=== PATIENT | male | born 1960 | race Caucasian/White ===

== ENCOUNTER 2021-04-11 11:36 | Emergency (ER) | payer OTHER ==
[~2021-04-11] VITALS: Ht 190.5 cm; Wt 90.7 kg
[2021-04-11] MEDS ORDERED: ZOLOFT100 MG PO (12:01)
[2021-04-11] MEDS ORDERED: HYDROXYZIN10 MG/5 ML PO (12:01)
[2021-04-11] MEDS ORDERED: GABAPENTIN800 M1 PO (12:01)
[2021-04-11] MEDS ORDERED: ADULT LOW DOSE81 M1 PO (12:02)
[2021-04-11] MEDS ORDERED: INSULIN SYRING1 EA29 (12:02)
[2021-04-11] MEDS ORDERED: THIAMINE HCL25 GM (12:02)
[2021-04-11] MEDS ORDERED: FOLIC ACID0.8 M1 (12:02)
[2021-04-11] MEDS ORDERED: LANTUS SOL100 UNIT/1 (12:03)
== END 2021-04-11 15:54 | disposition home or self-care (01) ==
LOC: ER 11:36
DX: S22.42XA Multiple fractures of ribs, left side, initial encounter for closed fracture (principal); W10.9XXA Fall (on) (from) unspecified stairs and steps, initial encounter; Y92.019 Unspecified place in single-family (private) house as the place of occurrence of the external cause; F10.20 Alcohol dependence, uncomplicated; E11.9 Type 2 diabetes mellitus without complications; Z91.013 Allergy to seafood

== ENCOUNTER → 2021-07-25 | Emergency (ER) | payer OTHER ==
[~2021-07-25] VITALS: Ht 188 cm; Wt 90.7 kg
[~2021-07-25] MED LIST: ADULT LOW DOSE81 M1 PO; CREON DR 36,001 EACH; FOLIC ACID0.8 M1; GABAPENTIN800 M1 PO; HYDROXYZIN10 MG/5 ML PO; INSULIN SYRING1 EA29; LANTUS SOL100 UNIT/1; THIAMINE HCL25 GM; ZOLOFT100 MG PO
== END ==
LOC: ER 09:50
DX: E11.00 Type 2 diabetes mellitus with hyperosmolarity without nonketotic hyperglycemic-hyperosmolar coma (NKHHC) (principal); R07.9 Chest pain, unspecified; F10.239 Alcohol dependence with withdrawal, unspecified; F10.229 Alcohol dependence with intoxication, unspecified; E11.65 Type 2 diabetes mellitus with hyperglycemia; Z79.4 Long term (current) use of insulin; Z91.013 Allergy to seafood; K29.70 Gastritis, unspecified, without bleeding; Z20.822 Contact with and (suspected) exposure to COVID-19

== ENCOUNTER 2021-10-24 02:36 | Inpatient (IN) | payer OTHER ==
[~2021-10-24] VITALS: Ht 182.9 cm; Wt 74.8 kg
== END 2021-10-29 16:24 | disposition left against medical advice (07) | DRG 638 ==
LOC: ER 02:36 → SEC-K 14:30 → ICU-2 14:30 → ICU 10-28 05:19 → SURG 10-28 20:32
PROVIDERS: ADMIT Internal Medicine; ATTEND Internal Medicine
PROC: B24BZZZ Ultrasonography of Heart with Aorta (ICD-10-PCS; principal; 2021-10-24)
DX: E11.10 Type 2 diabetes mellitus with ketoacidosis without coma (principal); K86.0 Alcohol-induced chronic pancreatitis; N17.8 Other acute kidney failure; E87.1 Hypo-osmolality and hyponatremia; E87.5 Hyperkalemia; E86.0 Dehydration; R41.82 Altered mental status, unspecified; E11.40 Type 2 diabetes mellitus with diabetic neuropathy, unspecified; Z79.4 Long term (current) use of insulin; F10.20 Alcohol dependence, uncomplicated; F32.A Depression, unspecified; F17.210 Nicotine dependence, cigarettes, uncomplicated